=== PATIENT | male | born 1965 | race Two or more races ===

== ENCOUNTER 2017-09-30 17:28 | Inpatient (IN) | payer SELFPAY ==
[2017-09-30] MEDS ORDERED: NORMAL SALINE 1000 ML 1,000 ML IV ONE (18:04)
[2017-09-30] MEDS ORDERED: AZITHROMYCIN INJ 500 MG VIAL IV ONE (18:04)
[2017-09-30] MEDS ORDERED: PIPERACILLIN/TAZOBACTAM 4.5 GM VIAL IV ONE (18:04)
[2017-09-30] MEDS ORDERED: ACETAMINOPHEN 325 MG TABLET PO ONE (18:04)
[2017-09-30] MEDS ORDERED: LEVOFLOXACIN 750 MG/D5W RTU 750 MG/150 ML RTUPB IV ONE (18:06)
--- NOTE | 2017-09-30 18:07 | ER Document Report ---
ED Medical Screen (RME) - General Chief Complaint: Chest Pain Stated Complaint: CHEST PAIN Time Seen by Provider: 09/30/17 18:04 Notes: Was diagnosed with pneumonia today her primary care doctor's office and referred here for persistent tachypnea and left upper back pain. Patient feels short of breath and has had a significant cough and fever. - Related Data Allergies/Adverse Reactions: Penicillins Allergy (Verified 09/30/17 17:30) Past Medical History - Social History Chew tobacco use (# tins/day): No Frequency of alcohol use: None Drug Abuse: None Renal/ Medical History: Denies: Hx Peritoneal Dialysis Physical Exam - Vital signs Vitals: Temp Pulse Resp BP Pulse Ox 99.0 F 110 H 40 H 123/64 90 L 09/30/17 17:56 09/30/17 17:56 09/30/17 17:56 09/30/17 17:56 09/30/17 17:56 Course - Vital Signs Vital signs: Temp Pulse Resp BP Pulse Ox 99.0 F 110 H 40 H 123/64 90 L 09/30/17 17:56 09/30/17 17:56 09/30/17 17:56 09/30/17 17:56 09/30/17 17:56
--- NOTE | 2017-09-30 18:25 | EKG REPORT ---
SEVERITY:- BORDERLINE ECG - SINUS TACHYCARDIA BORDERLINE PROLONGED QT INTERVAL : Confirmed by: Gustavo Bowers MD 30-Sep-2017 18:24:59
[2017-09-30 18:34] LABS: ABSOLUTE LYMPHOCYTES (AUTO) 0.6 10^3/uL (0.5-4.7); ABSOLUTE MONOCYTES (AUTO) 0.7 10^3/uL (0.1-1.4); ABSOLUTE NEUT (AUTO) 7.3 10^3/uL (1.7-8.2); BASOPHILS % (AUTO) 0.3 % (0-2); HEMATOCRIT 48.3 % (37.9-51.0); HEMOGLOBIN 17.1 g/dL (13.5-17.0); LYMPHOCYTES % (AUTO) 6.5 % (13-45); MEAN CORPUSCULAR HEMOGLOBIN 31.2 pg (27.0-33.4); MEAN CORPUSCULAR HGB CONC 35.5 g/dL (32.0-36.0); MEAN CORPUSCULAR VOLUME 88 fl (80-97); PLATELET COUNT 113 10^3/uL (150-450); RED BLOOD COUNT 5.49 10^6/uL (4.35-5.55); SEGMENTED NEUTROPHILS % (AUTO) 85.2 % (42-78); TOTAL CELLS COUNTED % (AUTO) 100 %; WHITE BLOOD COUNT 8.6 10^3/uL (4.0-10.5)
[2017-09-30 18:43] LABS: VENOUS BLOOD BASE EXCESS -0.6 mmol/L; VENOUS BLOOD HCO3 22.7 mmol/L (20-32); VENOUS BLOOD PCO2 34.2 mmHg (35-63); VENOUS BLOOD PH 7.44 (7.30-7.42)
--- NOTE | 2017-09-30 18:47 | RADIOLOGY REPORT (SQ) ---
EXAM DESCRIPTION: CHEST PA/LAT COMPLETED DATE/TIME: 09/30/2017 6:28 pm REASON FOR STUDY: fever/cough COMPARISON: None. EXAM PARAMETERS: NUMBER OF VIEWS: two views TECHNIQUE: Digital Frontal and Lateral radiographic views of the chest acquired. RADIATION DOSE: NA LIMITATIONS: none FINDINGS: LUNGS AND PLEURA: Patchy abnormal air space density bilaterally, left greater than right c onsistent with pneumonia. 7 cm and rounded area of increased density in the left upper lobe which co uld represent a round area of pneumonia although mass cannot be excluded. Chest CT should be conside red. No effusion. MEDIASTINUM AND HILAR STRUCTURES: No masses or contour abnormalities. HEART AND VASCULAR STRUCTURES: Heart normal size. No evidence for failure. BONES: No acute findings. HARDWARE: None in the chest. OTHER: No other significant finding. IMPRESSION: 1. Patchy abnormal air space density bilaterally, left greater than right consistent wi th pneumonia. 2. 7 cm rounded area of increased density in the left upper lobe which could represent round area o f pneumonia or mass. Chest CT should be considered for further evaluation. TECHNICAL DOCUMENTATION: JOB ID: [id number] [employer]- All Rights Reserved
[2017-09-30] MEDS ORDERED: LIDOCAINE 5% (700 MG) TRANSDERMAL ADH..PATCH TP ONE ×2 (19:01→22:45)
[2017-09-30] MEDS ORDERED: KETOROLAC TROMETHAMINE INJ/PF 30 MG/1 ML SDV IV ONE (19:01)
[2017-09-30 19:02] LABS: ALANINE AMINOTRANSFERASE 144 U/L (21-72); ALBUMIN 4.7 g/dL (3.5-5.0); ALKALINE PHOSPHATASE 62 U/L (38-126); ANION GAP 15 (5-19); ASPARTATE AMINO TRANSFERASE 153 U/L (17-59); BILIRUBIN,DIRECT 0.6 mg/dL (0.0-0.4); BILIRUBIN,TOTAL 1.1 mg/dL (0.2-1.3); BLOOD UREA NITROGEN 13 mg/dL (7-20); CALCIUM 9.1 mg/dL (8.4-10.2); CARBON DIOXIDE 22 mmol/L (22-30); CHLORIDE 94 mmol/L (98-107); GLUCOSE 143 mg/dL (75-110); POTASSIUM 4.3 mmol/L (3.6-5.0); TOTAL PROTEIN 8.4 g/dL (6.3-8.2)
--- NOTE | 2017-09-30 19:03 | ER Document Report ---
ED Respiratory Problem - General Chief Complaint: Chest Pain Stated Complaint: CHEST PAIN Time Seen by Provider: 09/30/17 18:04 Notes: The patient is a 52-year-old male, past medical history current smoker, has not seen a doctor in decades, presents with increasing shortness of breath over the past 5 days and productive cough. He says he is having chest pain that is worse when he takes deep breath. He saw a doctor in [place] and was sent to the ER for further evaluation and treatment. Patient is having back spasms that is worse when he takes deep breaths. Patient denies leg swelling, hemoptysis, fevers, nausea, vomiting, abdominal pain, numbness or tingling. - Related Data Allergies/Adverse Reactions: Penicillins Allergy (Verified 09/30/17 17:30) Past Medical History - General Information source: Patient - Social History Smoking Status: Current Every Day Smoker Chew tobacco use (# tins/day): No Frequency of alcohol use: None Drug Abuse: None Family History: Reviewed & Not Pertinent Patient has suicidal ideation: No Patient has homicidal ideation: No Renal/ Medical History: Denies: Hx Peritoneal Dialysis Review of Systems - Review of Systems Notes: REVIEW OF SYSTEMS: CONSTITUTIONAL: -fevers, -chills EENT: -eye pain, -difficulty swallowing, -nasal congestion CARDIOVASCULAR: +chest pain, -syncope. RESPIRATORY: +cough, +SOB GASTROINTESTINAL: -abdominal pain, -nausea, -vomiting, -diarrhea GENITOURINARY: -dysuria, -hematuria MUSCULOSKELETAL: -back pain, -neck pain SKIN: -rash or skin lesions. HEMATOLOGIC: -easy bruising or bleeding. LYMPHATIC: -swollen, enlarged glands. NEUROLOGICAL: -altered mental status or loss of consciousness, -headache, - neurologic symptoms PSYCHIATRIC: -anxiety, -depression. ALL OTHER SYSTEMS REVIEWED AND NEGATIVE. Physical Exam - Vital signs Vitals: Temp Pulse Resp BP Pulse Ox 99.0 F 110 H 40 H 123/64 90 L 09/30/17 17:56 09/30/17 17:56 09/30/17 17:56 09/30/17 17:56 09/30/17 17:56 - Notes Notes: PHYSICAL EXAMINATION: GENERAL: Moderate respiratory distress. HEAD: Atraumatic, normocephalic. EYES: Pupils equal round and reactive to light, extraocular movements intact, sclera anicteric, conjunctiva are normal. ENT: nares patent, oropharynx clear without exudates. Moist mucous membranes. NECK: Normal range of motion, supple without lymphadenopathy LUNGS: Tachypnea, moderate respiratory distress, diffuse crackles. HEART: Regular rhythm, tachycardia. ABDOMEN: Soft, nontender, normoactive bowel sounds. No guarding, no rebound. No masses appreciated. EXTREMITIES: Normal range of motion, no pitting or edema. No cyanosis. NEUROLOGICAL: Cranial nerves grossly intact. Normal speech. Normal sensory and motor exams. PSYCH: Normal mood, normal affect. SKIN: Warm, Dry, normal turgor, no rashes or lesions noted. Course - Re-evaluation Re-evalutation: Patient with left-sided pneumonia that is causing tachypnea, tachycardia and slight hypoxia down to 89%. Patient is doing much better on BiPAP and his respiratory status has improved. Blood pressure is remaining normal. CTA obtained due to abnormal chest x-ray and due to the tachycardia and tachypnea, but no pulmonary embolism was seen. Patient does not have a primary care physician. He requires inpatient admission for IV antibiotics and further monitoring of his respiratory status. 09/30/17 22:[address] Bennett and will admit patient to [facility] as Inpatient. - Vital Signs Vital signs: Temp Pulse Resp BP Pulse Ox 99.0 F 110 H 28 H 117/76 94 09/30/17 17:56 09/30/17 17:56 09/30/17 22:00 09/30/17 21:01 09/30/17 22:00 - Laboratory Result Diagrams: 09/30/17 18:15 09/30/17 18:15 Laboratory results interpreted by me: 09/30/17 09/30/17 09/30/17 18:15 18:15 18:25 Hgb 17.1 H Plt Count 113 L Seg Neutrophils % 85.2 H Lymphocytes % 6.5 L VBG pH 7.44 H VBG pCO2 34.2 L Sodium 131.0 L Chloride 94 L Creatinine 1.29 H Est GFR (Non-Af Amer) 58 L Glucose 143 H Direct Bilirubin 0.6 H AST 153 H ALT 144 H Total Protein 8.4 H - Diagnostic Test Radiology reviewed: Image reviewed, Reports reviewed Radiology results interpreted by me: CXR: 1. Patchy abnormal air space density bilaterally, left greater than right consistent with pneumonia. 2. 7 cm rounded area of increased density in the left upper lobe which could represent round area of pneumonia or mass. Chest CT should be considered for further evaluation. CTA Chest: Diffuse patchy and dense consolidation throughout the left upper and lower lobes. No emboli visualized in the main pulmonary arteries or the segmental branches. - EKG Interpretation by Sd EKG shows normal: Sinus rhythm, [place], Intervals, QRS Complexes, ST-T Waves Rate: Tachycardia When compared to previous EKG there are: No significant change Critical Care Note - Critical Care Note Total time excluding time spent on procedures (mins): 45 Discharge - Discharge Clinical Impression: Pneumonia Qualifiers: Pneumonia type: due to unspecified organism Laterality: left Lung location: unspecified part of lung Qualified Code(s): J18.9 - Pneumonia, unspecified organism Respiratory failure with hypoxia Qualifiers: Chronicity: acute Qualified Code(s): J96.01 - Acute respiratory failure with hypoxia Condition: Stable Disposition: ADMITTED INPATIENT Admitting Provider: Hospitalist - [facility] Unit Admitted: [facility]
[2017-09-30] MEDS ORDERED: CEFTRIAXONE 1 GM/D5W RTU 1 GM/50 ML RTUPB IV ONE (20:52)
[2017-09-30 21:02] LABS: A TYPE INFLUENZA AG NEGATIVE (NEGATIVE); B INFLUENZA AG NEGATIVE (NEGATIVE)
--- NOTE | 2017-09-30 21:08 | RADIOLOGY REPORT (SQ) ---
EXAM DESCRIPTION: CTA CHEST COMPLETED DATE/TIME: 09/30/2017 8:50 pm REASON FOR STUDY: abnormal CXR, chest pain, tachypnea, possible mass COMPARISON: None. TECHNIQUE: CT scan of the chest performed using helical scanning technique with dynamic intravenous contrast injection. Images reviewed with lung, soft tissue and bone windows. Reconstructed coronal and sagittal MPR images reviewed. Additional 3 dimensional post-processing performed to develop Maximal Intensity Projection images ([place] P). All images stored on PACS. All CT scanners at this facility use dose modulation, iterative reconstruction, and/or weight based d osing when appropriate to reduce radiation dose to as low as reasonably achievable (ALARA). [facility]: Dose Right [facility]: CareDose [facility]: Dose Right [facility]: Teradose 4D [facility]: Content Circles CONTRAST TYPE AND DOSE: contrast/concentration: Isovue 370.00 mg/ml; Total Contrast Delivered: 78.0 ml; Total Saline Delivered: 87.0 ml Contrast bolus optimized for the pulmonary arteries. Not diagnostic for the aorta. RENAL FUNCTION: GFR > 60. RADIATION DOSE: CT Rad equipment meets quality standard of care and radiation dose reduction techniq ues were employed. CTDIvol: 24.0 - 33.1 mGy. DLP: 888 mGy-cm. . LIMITATIONS: Mild breathing motion artifact. FINDINGS: LUNGS AND PLEURA: Diffuse patchy and dense consolidation throughout the left upper and low er lobes. No effusion or pneumothorax. Bronchial wall thickening and interstitial markings are pres ent in both lungs. AORTA AND GREAT VESSELS: No aneurysm. Contrast bolus not optimized for the aorta. HEART: No pericardial effusion. Moderate coronary artery calcifications. PULMONARY ARTERIES: No emboli visualized in the main pulmonary arteries or the segmental branches. HILAR AND MEDIASTINAL STRUCTURES: Scattered reactive appearing nodes. HARDWARE: None in the chest. UPPER ABDOMEN: Fatty liver. Calcified gallstones. Limited exam. THYROID AND OTHER SOFT TISSUES: No masses. No adenopathy. BONES: No acute finding. 3D MIPS: Confirm above findings. OTHER: No other significant finding. IMPRESSION: Diffuse patchy and dense consolidation throughout the left upper and lower lobes. No emboli visualized in the main pulmonary arteries or the segmental branches. COMMENT: Quality ID # [id number]: Final reports with documentation of one or more dose reduction techniques (e.g., Automated exposure control, adjustment of the mA and/or kV according to patient size, use of iterative reconstruction technique) TECHNICAL DOCUMENTATION: JOB ID: [id number] [place]-72 2010 [employer]- All Rights Reserved
[2017-09-30] MEDS ORDERED: CEFTRIAXONE INJ 1000 MG VIAL ONE (21:11)
[2017-09-30] MEDS ORDERED: ONDANSETRON 4 MG TAB.RAPDIS PO PRN (22:58)
[2017-09-30] MEDS ORDERED: IPRATROPIUM/ALBUTEROL 0.5-2.5 MG/3 ML AMPUL NEB PRN (22:58)
[2017-09-30] MEDS ORDERED: PROMETHAZINE HCL 25 MG TABLET PO PRN (22:58)
[2017-09-30] MEDS ORDERED: DIAZEPAM INJ 10 MG/2 ML DISP.SYRIN IV ONE (23:36)
[2017-09-30] MEDS ORDERED: MORPHINE SULFATE 10 MG/ML INJ IV ONE (23:58)
[2017-10-01] MEDS ORDERED: HYDROMORPHONE HCL INJ/PF 2 MG/ML AMPULE IV ONE ×2 (00:12→04:15)
--- NOTE | 2017-10-01 03:07 | PDOC H&P ---
History of Present Illness Admission Date/PCP: 09/30/17 22:34 Patient complains of: Worsening shortness of breath and the left-sided back pain for about a week. History of Present Illness: JOSÉ LUIS VALDEZ is a 52 year old male smoker with no known medical history was admitted with above-mentioned complaints. The patient is currently on BiPAP and he is very uncomfortable complaining of left-sided back spasm despite Lidoderm patch and 5 mg of IV Valium given in the ED. It was very difficult to obtain an accurate history from him so some of the information was obtained from the ED notes. The patient complained of pleuritic chest pain exacerbated by cough. He also complained of worsening shortness of breath, undocumented fever, chills and productive cough but he is unable to bring up any sputum. He denied any sick contact or recent travels. He also denied any nausea vomiting or abdominal pain or any urinary symptoms. He is otherwise able to ambulate independently. In the ED, his temperature was 99.0, heart rate 110, respiratory rate 40, blood pressure 123/64 with oxygen saturation of 90% on room air. His WBC was 8.6 and his hemoglobin was 17.1. His troponin was negative. A chest x-ray and CAT scan angiogram of the chest were done with the latter showing diffuse patchy and dense consolidation throughout the left upper and lower lobes, no PE. He received 1 g of Rocephin x1, 500 milligrams IV Zithromax x1 in addition to 750 mg IV Levaquin x1. He also had 5 mg IV Valium x1, 5% Lidoderm patch and 15 mg IV Toradol 1 and 0.5 mg Dilaudid 1. Past Medical History Cardiac Medical History: Reports: Other - unknown Past Surgical History Past Surgical History: Reports: None Social History Smoking Status: Current Every Day Smoker Cigarettes Packs Per Day: 1 - 30 years he quit 5 days ago. Frequency of Alcohol Use: None Family History Family History: Reviewed & Not Pertinent Parental Family History Reviewed: Yes - Father: Diabetes. Children Family History Reviewed: No Sibling(s) Family History Reviewed.: Yes Medication/Allergy Allergies/Adverse Reactions: Penicillins Allergy (Verified 09/30/17 17:30) Review of Systems Constitutional: PRESENT: as per HPI Eyes: PRESENT: as per HPI Ears: PRESENT: as per HPI Nose, Mouth, and Throat: PRESENT: as per HPI Breasts: PRESENT: as per HPI Cardiovascular: PRESENT: as per HPI Respiratory: PRESENT: as per HPI Gastrointestinal: PRESENT: as per HPI Genitourinary: PRESENT: as per HPI Musculoskeletal: PRESENT: as per HPI Integumentary: PRESENT: as per HPI Neurological: PRESENT: as per HPI Psychiatric: PRESENT: as per HPI Endocrine: PRESENT: as per HPI Hematologic/Lymphatic: PRESENT: as per HPI Physical Exam Vital Signs: Temp Pulse Resp BP Pulse Ox 99.0 F 110 H 28 H 117/76 94 09/30/17 17:56 09/30/17 17:56 09/30/17 22:00 09/30/17 21:01 09/30/17 22:00 General appearance: PRESENT: disheveled, mild distress - to moderate Head exam: PRESENT: atraumatic, normocephalic Eye exam: PRESENT: conjunctiva pink, PERRLA. ABSENT: scleral icterus Mouth exam: PRESENT: other - on BIPAP mask. Neck exam: PRESENT: carotid bruit, lymphadenopathy. ABSENT: JVD Respiratory exam: PRESENT: decreased breath sounds, rales, rhonchi. ABSENT: wheezes Cardiovascular exam: PRESENT: tachycardia - S1 S2 normal. ABSENT: rubs Pulses: PRESENT: normal dorsalis pedis pul GI/Abdominal exam: PRESENT: normal bowel sounds, soft. ABSENT: distended, guarding, rebound, tenderness Rectal exam: PRESENT: deferred Extremities exam: PRESENT: full ROM. ABSENT: pedal edema Neurological exam: PRESENT: alert, awake, oriented to person, oriented to place , oriented to situation Psychiatric exam: PRESENT: appropriate affect, normal mood. ABSENT: homicidal ideation, suicidal ideation Skin exam: PRESENT: dry, intact, warm. ABSENT: cyanosis, rash Results Laboratory Results: 09/30/17 18:15 WBC 8.6 RBC 5.49 Hgb 17.1 H Hct 48.3 MCV 88 MCH 31.2 RDW 13.0 Plt Count 113 L VBG: PH 7.44, PCO2 34.2, HCO3 22.7. BMP: Sodium 131, potassium 4.3, chloride 94, bicarb 22, BUN 13, creatinine 1.29 , glucose 143, lactic acid 1.7 AST/ALT: 1 553/1 4 4. Alk phos 62. Total bili 1.1. Troponin: Negative 1. EKG Comments: 12-lead EKG, sinus rhythm, ventricular rate 105, axis +25, QTC prolongation, no acute changes. No previous EKG to compare. Impressions: Chest X-Ray 09/30/17 18:05 IMPRESSION: 1. Patchy abnormal air space density bilaterally, left greater than right consistent with pneumonia. 2. 7 cm rounded area of increased density in the left upper lobe which could represent round area of pneumonia or mass. Chest CT should be considered for further evaluation. Chest/Abdomen CTA 09/30/17 19:03 IMPRESSION: Diffuse patchy and dense consolidation throughout the left upper and lower lobes. No emboli visualized in the main pulmonary arteries or the segmental branches. Assessment & Plan - Diagnosis (1) Acute respiratory failure with hypoxemia Is this a current diagnosis for this admission?: Yes Plan: possibly on chronic given tachypnea and oxygen desaturation requiring BiPAP due to pneumonia, question superimposed COPD exacerbation. His CXR and CAT scan angiogram were reviewed. Will start scheduled DuoNeb treatments, Solu-Medrol and continue antibiotics as detailed below. (2) Community acquired bacterial pneumonia Is this a current diagnosis for this admission?: Yes Plan: Unknown organism. Chest x-ray and CAT scan angiogram of the chest were reviewed. We will continue Rocephin and doxycycline and follow-up blood cultures. (3) Sepsis Qualifiers: Sepsis type: sepsis due to unspecified organism Qualified Code(s): A41.9 - Sepsis, unspecified organism Is this a current diagnosis for this admission?: Yes Plan: Given tachypnea and tachycardia in the setting of pneumonia. Lactic acid was 1.7. We will continue management as mentioned previously. (4) Elevated transaminase level Is this a current diagnosis for this admission?: Yes Plan: Unknown etiology at this time. CTA chest showed fatty liver and calcified gallbladder (limited study). We will check acute hepatitis profile and abdominal ultrasound. The patient denied alcohol use. Will repeat CMP in a.m. (5) Smoker Is this a current diagnosis for this admission?: Yes Plan: The patient used to smoke 1 pack a day for 30 years. He said that he quit 5 days ago. (6) Back pain Qualifiers: Back pain location: thoracic back pain Chronicity: acute Back pain laterality: left Qualified Code(s): M54.6 - Pain in thoracic spine Is this a current diagnosis for this admission?: Yes Plan: and spasm, most likely secondary to pneumonia. We will give IV Dilaudid (IV morphine is not available per pharmacy) as needed at this time and switch him to oral pain medications when off BiPAP. - Time Time Spent: Greater than 70 Minutes Anticipated discharge: Home - Inpatient Certification Based on my medical assessment, after consideration of the patient's comorbidities, presenting symptoms, or acuity I expect that the services needed warrant INPATIENT care.: Yes I certify that my determination is in accordance with my understanding of Medicare's requirements for reasonable and necessary INPATIENT services [42 CFR 412.3e].: Yes
[2017-10-01] MEDS ORDERED: METHYLPREDNISOLONE INJ 40 MG/1 ML SDV IV ONE (03:30)
[2017-10-01] MEDS: IPRATROPIUM/ALBUTEROL 0.5-2.5 MG/3 ML AMPUL NEB SCH ×6 (04:09→23:04)
[2017-10-01 04:45] LABS: ARTERIAL BLOOD BASE EXCESS -10.6 mmol/L; ARTERIAL BLOOD H2CO3 1.33 mmol/L (1.05-1.35); ARTERIAL BLOOD HCO3 17.1 mmol/L (20-26); ARTERIAL BLOOD O2 SATURATION 87.1 % (94-98); ARTERIAL BLOOD PCO2 44.1 mmHg (35-45); ARTERIAL BLOOD PH 7.21 (7.35-7.45); ARTERIAL BLOOD PO2 62.8 mmHg (80-100); ARTERIAL BLOOD TOTAL CO2 18.4 mmol/L (23-27)
[2017-10-01 04:46] LABS: ARTERIAL BLOOD FIO2 40%
[2017-10-01 05:54] LABS: ANION GAP 18 (5-19); BLOOD UREA NITROGEN 22 mg/dL (7-20); CALCIUM 7.8 mg/dL (8.4-10.2); CARBON DIOXIDE 16 mmol/L (22-30); CHLORIDE 98 mmol/L (98-107); GLUCOSE 130 mg/dL (75-110); HEMATOCRIT 47.3 % (37.9-51.0); HEMOGLOBIN 16.6 g/dL (13.5-17.0); MEAN CORPUSCULAR HEMOGLOBIN 31.4 pg (27.0-33.4); MEAN CORPUSCULAR HGB CONC 35.1 g/dL (32.0-36.0); MEAN CORPUSCULAR VOLUME 90 fl (80-97); POTASSIUM 4.4 mmol/L (3.6-5.0); RED BLOOD COUNT 5.29 10^6/uL (4.35-5.55); RED CELL DISTRIBUTION WIDTH 13.1 % (11.5-14.0); SODIUM 132.2 mmol/L (137-145)
[2017-10-01] MEDS ORDERED: HEPARIN SOD (PORCINE) 5,000 UNIT/ML 1 ML SYRINGE SUBCUT SCH (06:00)
[2017-10-01 06:20] LABS: PLATELET COUNT 86 10^3/uL (150-450)
[2017-10-01 07:08] LABS: ARTERIAL BLOOD BASE EXCESS -10.5 mmol/L; ARTERIAL BLOOD H2CO3 1.15 mmol/L (1.05-1.35); ARTERIAL BLOOD HCO3 16.1 mmol/L (20-26); ARTERIAL BLOOD O2 SATURATION 95.1 % (94-98); ARTERIAL BLOOD PCO2 38.1 mmHg (35-45); ARTERIAL BLOOD PH 7.24 (7.35-7.45); ARTERIAL BLOOD PO2 86.5 mmHg (80-100); ARTERIAL BLOOD TOTAL CO2 17.2 mmol/L (23-27)
[2017-10-01 07:12] LABS: ARTERIAL BLOOD FIO2 60%
[2017-10-01] MEDS ORDERED: NORMAL SALINE 1000 ML 1,000 ML IV PRN (08:06)
[2017-10-01] MEDS ORDERED: HYDROMORPHONE HCL INJ/PF 2 MG/ML AMPULE IV PRN (08:14)
[2017-10-01] MEDS ORDERED: SUCCINYLCHOLINE CHLORIDE INJ 200 MG/10 ML VIAL ONE (08:18)
[2017-10-01] MEDS ORDERED: NORMAL SALINE 1000 ML 2,000 ML IV ONE (09:00)
[2017-10-01 09:14] LABS: APPEARANCE,URINE SLIGHTLY-CLOUDY; BILIRUBIN,URINE NEGATIVE (NEGATIVE); COLOR,URINE YELLOW; GLUCOSE, URINE NEGATIVE (NEGATIVE); KETONES,URINE TRACE mg/dL (NEGATIVE); LEUKOCYTE ESTERASE,URINE NEGATIVE (NEGATIVE); NITRITE,URINE NEGATIVE (NEGATIVE); PROTEIN,URINE 30 mg/dL (NEGATIVE); URINE SPECIFIC GRAVITY 1.041; UROBILINOGEN,URINE NEGATIVE mg/dL (<2.0)
[2017-10-01 09:48] LABS: ABSOLUTE LYMPHOCYTES (AUTO) 0.4 10^3/uL (0.5-4.7); ABSOLUTE MONOCYTES (AUTO) 0.3 10^3/uL (0.1-1.4); ABSOLUTE NEUT (AUTO) 1.6 10^3/uL (1.7-8.2); BASOPHILS % (AUTO) 0.2 % (0-2); EOSINOPHILS % (AUTO) 0.1 % (0-6); HEMATOCRIT 51.4 % (37.9-51.0); HEMOGLOBIN 17.8 g/dL (13.5-17.0); LYMPHOCYTES % (AUTO) 18.5 % (13-45); MEAN CORPUSCULAR HGB CONC 34.7 g/dL (32.0-36.0); MEAN CORPUSCULAR VOLUME 89 fl (80-97); MONOCYTES % (AUTO) 14.3 % (3-13); RED BLOOD COUNT 5.76 10^6/uL (4.35-5.55); RED CELL DISTRIBUTION WIDTH 13.1 % (11.5-14.0); SEGMENTED NEUTROPHILS % (AUTO) 66.9 % (42-78); TOTAL CELLS COUNTED % (AUTO) 100 %; WHITE BLOOD COUNT 2.3 10^3/uL (4.0-10.5)
[2017-10-01] MEDS ORDERED: LEVOFLOXACIN 750 MG/D5W RTU 750 MG/150 ML RTUPB IV SCH (10:00)
[2017-10-01] MEDS ORDERED: OSELTAMIVIR PHOSPHATE 75 MG CAPSULE PO SCH (10:00)
[2017-10-01] MEDS ORDERED: LINEZOLID 300 ML IV SCH ×2 (10:00→22:00)
[2017-10-01] MEDS ORDERED: METHYLPREDNISOLONE INJ 40 MG/1 ML SDV IV SCH (10:00)
[2017-10-01] MEDS ORDERED: FAMOTIDINE 20 MG TABLET PO SCH (10:00)
[2017-10-01] MEDS ORDERED: DOXYCYCLINE HYCLATE 100 MG TABLET PO SCH (10:00)
[2017-10-01 10:12] LABS: PLATELET COUNT 67 10^3/uL (150-450)
[2017-10-01] MEDS ORDERED: ACETAMINOPHEN 325 MG TABLET PO PRN (10:21)
[2017-10-01] MEDS ORDERED: PHARMACY COMMUNICATION ORDER MC NR (11:30)
[2017-10-01] MEDS ORDERED: PROPOFOL 100 ML IV ONE (11:33)
[2017-10-01] MEDS ORDERED: PHENYLEPHRINE HCL INJ/PF 10 MG/1 ML SDV ONE (11:45)
[2017-10-01] MEDS ORDERED: NOREPINEPHRINE BITARTRATE INJ/PF 4 MG/4 ML SDV IV ONE (11:55)
[2017-10-01] MEDS ORDERED: ONDANSETRON 4 MG TAB.RAPDIS NG PRN (12:00)
[2017-10-01] MEDS ORDERED: PROMETHAZINE HCL 25 MG TABLET NG PRN (12:00)
--- NOTE | 2017-10-01 12:13 | Operative Report ---
Operative Report DATE OF SURGERY: 10/01/17 PREOPERATIVE DIAGNOSIS: need IV access for meds fluids POSTOPERATIVE DIAGNOSIS: same OPERATION: Left subcalvian vein CVL SURGEON: TOBIAS DUNAWAY ANESTHESIA: GA TISSUE REMOVED OR ALTERED: none COMPLICATIONS: none ESTIMATED BLOOD LOSS: < 5 mL INTRAOPERATIVE FINDINGS: as above PROCEDURE: see dictation
--- NOTE | 2017-10-01 12:23 | OPERATIVE REPORT E ---
Operative Report NAME: JOSÉ LUIS VALDEZ : 1965 AGE: 52Y DATE OF SURGERY: 10/01/2017 ROOM: 609 PREOPERATIVE DIAGNOSIS: NEED FOR IV ACCESS FOR ADMINISTRATION OF MEDICATION DRUGS. POSTOPERATIVE DIAGNOSIS: NEED FOR IV ACCESS FOR ADMINISTRATION OF MEDICATION DRUGS. OPERATION: Placement of a left subclavian central venous line. SURGEON: TOBIAS DUNAWAY M.D. AGRICULTURAL PURCHASING AGENT: None. ANESTHESIA: None, as the patient was already undergoing IV sedation by anesthesiologist. ESTIMATED BLOOD LOSS: Minimal. COMPLICATIONS: None. INDICATION AND FINDINGS: This is a 52-year-old male who has been getting currently emergently intubated in dire need of IV access for the administration of medication and fluids. PROCEDURE: It was done in the ICU. The patient was placed in Trendelenburg position. The right side of the chest and neck was prepped and draped in usual fashion. A 16-gauge needle was used to easily cannulate the left subclavian vein, with good blood return. The guidewire was inserted over the needle into the subclavian vein and superior vena cava. The needle was removed. Insertion of port with the guidewire was done with a #11 blade and a tissue dilator, which was removed. A triple-lumen catheter was inserted over the guidewire into the left subclavian vein and superior vena cava. The guidewire was then removed. The port was aspirated and flushed with normal saline without difficulty. The catheter was sutured to the skin with silk sutures. Sterile dressings applied. The patient tolerated the procedure well. A chest x-ray was obtained to confirm position of the line. DICTATING PHYSICIAN: TOBIAS DUNAWAY M.D. [id number] PHY#: [id number] ID: [id number] JOB#: [id number] ACCT: [id number] cc:TOBIAS DUNAWAY M.D. > MTDD
--- NOTE | 2017-10-01 12:27 | PDOC CONSULTATION ---
Consultation Consult Date: 10/01/17 Consult reason:: need CVL placement History of Present Illness Admission Date/PCP: 09/30/17 22:34 History of Present Illness: 52 yr. old male in dire need of iv access via CVL Past Medical History Cardiac Medical History: Reports: Other - unknown Past Surgical History Past Surgical History: Reports: None Social History Smoking Status: Current Every Day Smoker Cigarettes Packs Per Day: 1 - 30 years he quit 5 days ago. Frequency of Alcohol Use: None Family History Family History: Reviewed & Not Pertinent Parental Family History Reviewed: Yes Children Family History Reviewed: Yes Sibling(s) Family History Reviewed.: Yes Medication/Allergy Home Medications: Acetaminophen [Tylenol Extra Strength] 1,000 mg PO Q6 10/01/17 Guaifenesin/Pseudoephedrne HCl [Mucinex D ER Tablet] 1 each PO DAILY 10/01/17 Allergies/Adverse Reactions: Penicillins Allergy (Verified 09/30/17 17:30) Physical Exam Vital Signs: Temp Pulse Resp BP Pulse Ox 98.0 F 129 H 17 102/68 91 L 10/01/17 06:15 10/01/17 04:09 10/01/17 10:00 10/01/17 10:02 10/01/17 09:47 Intake & Output 09/30/17 10/01/17 10/02/17 06:59 06:59 06:59 Output Total 500 Balance -500 General appearance: PRESENT: severe distress, other - intubated sedated Respiratory exam: PRESENT: accessory muscle use, clear to auscultation lianne Results Laboratory Results: 10/01/17 09:18 10/01/17 05:00 10/01/17 10/01/17 10/01/17 04:35 05:00 05:00 WBC 2.0 L D RBC 5.29 Hgb 16.6 Hct 47.3 MCV 90 MCH 31.4 MCHC 35.1 RDW 13.1 Plt Count 86 L Seg Neutrophils % Lymphocytes % Monocytes % Eosinophils % Basophils % Absolute Neutrophils Absolute Lymphocytes Absolute Monocytes Absolute Eosinophils Absolute Basophils Carbonic Acid 1.33 HCO3/H2CO3 Ratio 12:1 ABG pH 7.21 L ABG pCO2 44.1 ABG pO2 62.8 L ABG HCO3 17.1 L ABG O2 Saturation 87.1 L ABG Base Excess -10.6 FiO2 40% Sodium 132.2 L Potassium 4.4 Chloride 98 Carbon Dioxide 16 L Anion Gap 18 BUN 22 H Creatinine 2.61 H Est GFR ( Amer) 31 L Est GFR (Non-Af Amer) 26 L Glucose 130 H Lactic Acid Calcium 7.8 L Urine Color Urine Appearance Urine pH Ur Specific Advance Urine Protein Urine Glucose (UA) Urine Ketones Urine Blood Urine Nitrite Ur Leukocyte Esterase Urine WBC (Auto) Urine RBC (Auto) 10/01/17 10/01/17 10/01/17 06:57 08:15 08:51 WBC RBC Hgb Hct MCV MCH MCHC RDW Plt Count Seg Neutrophils % Lymphocytes % Monocytes % Eosinophils % Basophils % Absolute Neutrophils Absolute Lymphocytes Absolute Monocytes Absolute Eosinophils Absolute Basophils Carbonic Acid 1.15 HCO3/H2CO3 Ratio 14:1 ABG pH 7.24 L ABG pCO2 38.1 ABG pO2 86.5 ABG HCO3 16.1 L ABG O2 Saturation 95.1 ABG Base Excess -10.5 FiO2 60% Sodium Potassium Chloride Carbon Dioxide Anion Gap BUN Creatinine Est GFR ( Amer) Est GFR (Non-Af Amer) Glucose Lactic Acid 5.2 H Calcium Urine Color YELLOW Urine Appearance SLIGHTLY-CLOUDY Urine pH 5.0 Ur Specific Advance 1.041 Urine Protein 30 H Urine Glucose (UA) NEGATIVE Urine Ketones TRACE H Urine Blood SMALL H Urine Nitrite NEGATIVE Ur Leukocyte Esterase NEGATIVE Urine WBC (Auto) 2 Urine RBC (Auto) 9 10/01/17 09:18 WBC 2.3 L RBC 5.76 H Hgb 17.8 H Hct 51.4 H MCV 89 MCH 31.0 MCHC 34.7 RDW 13.1 Plt Count 67 L Seg Neutrophils % 66.9 Lymphocytes % 18.5 Monocytes % 14.3 H Eosinophils % 0.1 Basophils % 0.2 Absolute Neutrophils 1.6 L Absolute Lymphocytes 0.4 L Absolute Monocytes 0.3 Absolute Eosinophils 0.0 Absolute Basophils 0.0 Carbonic Acid HCO3/H2CO3 Ratio ABG pH ABG pCO2 ABG pO2 ABG HCO3 ABG O2 Saturation ABG Base Excess FiO2 Sodium Potassium Chloride Carbon Dioxide Anion Gap BUN Creatinine Est GFR ( Amer) Est GFR (Non-Af Amer) Glucose Lactic Acid Calcium Urine Color Urine Appearance Urine pH Ur Specific Advance Urine Protein Urine Glucose (UA) Urine Ketones Urine Blood Urine Nitrite Ur Leukocyte Esterase Urine WBC (Auto) Urine RBC (Auto) Impressions: Chest/Abdomen CTA 09/30/17 19:03 IMPRESSION: Diffuse patchy and dense consolidation throughout the left upper and lower lobes. No emboli visualized in the main pulmonary arteries or the segmental branches. Assessment & Plan - Plan Summary Plan Summary: A/ Patient in dire need of IV access, intubated P/ Plan placement of CVL at bedside.
--- NOTE | 2017-10-01 12:38 | RADIOLOGY REPORT (SQ) ---
EXAM DESCRIPTION: CHEST SINGLE VIEW COMPLETED DATE/TIME: 10/01/2017 12:17 pm REASON FOR STUDY: ET Tube Placement/CENTRAL LINE PLACEMENT/RESPIRATORY FAILURE COMPARISON: Two-view chest films 09/30/2017 CT angio chest 09/30/2017 EXAM PARAMETERS: NUMBER OF VIEWS: One view. TECHNIQUE: Single frontal radiographic view of the chest acquired. RADIATION DOSE: NA LIMITATIONS: None. FINDINGS: Interval placement of a endotracheal tube with the tip 5 cm above the glenys. Left-sided subclavian central line tip in the superior vena cava. No pneumothorax. Moderate gaseous distension of stomach. LUNGS AND PLEURA: Progression of consolidation, now with near complete opacification of the left lung , and patchy right mid lung opacification. Findings are worrisome for ARDS versus pneumonia versus e court. No pneumothorax. No gross pleural effusions. MEDIASTINUM AND HILAR STRUCTURES: No masses. Contour normal. HEART AND VASCULAR STRUCTURES: No cardiomegaly BONES: No acute findings. HARDWARE: As above OTHER: No other significant finding. IMPRESSION: Progression of airspace disease bilaterally left greater than right worrisome for ARDS v ersus edema versus pneumonia. Endotracheal tube, left subclavian line in good positioning. TECHNICAL DOCUMENTATION: JOB ID: [id number] [employer]- All Rights Reserved
[2017-10-01] MEDS: DEXTROSE 5%-WATER 250 ML with PHENYLEPHRINE HCL 40 MG IV PRN ×4 (12:58→22:48)
[2017-10-01] MEDS ORDERED: PANTOPRAZOLE SODIUM 40 MG VIAL IV ONE ×2 (13:00→15:45)
[2017-10-01] MEDS ORDERED: TUBERCULIN,PURIF.PROT.DERIV. 5 TU/0.1 ML TEST 1 ML VIAL ID ONE (13:00)
[2017-10-01] MEDS ORDERED: MIDAZOLAM HCL 50 MG/100 ML RTUINJ IV PRN (13:01)
[2017-10-01] MEDS: PROPOFOL 100 ML IV PRN ×2 (13:06→17:28)
[2017-10-01] MEDS: METHYLPREDNISOLONE INJ 40 MG/1 ML SDV IV SCH ×2 (13:11→23:57)
--- NOTE | 2017-10-01 13:12 | Progress Note ---
Provider Note Provider Note: When patient was transferred to ICU was tachypneic. Dr. Rangel was at bedside and consider that patient required to be intubated. He was successfully intubated. Dr. Arrington inserted central line with no further complications. NG tube demonstrated bright red blood and orders for Protonix IV were given. Antibiotic regimen was changed to meropenem and Zyvox. Will continue Tamiflu. Further orders were placed which is BMP since if renal function continued to deteriorate and may consider to transfer patient since we do not have renal backup
[2017-10-01 13:20] LABS: ARTERIAL BLOOD BASE EXCESS -16.8 mmol/L; ARTERIAL BLOOD H2CO3 1.76 mmol/L (1.05-1.35); ARTERIAL BLOOD HCO3 14.7 mmol/L (20-26); ARTERIAL BLOOD O2 SATURATION 84.7 % (94-98); ARTERIAL BLOOD PCO2 58.6 mmHg (35-45); ARTERIAL BLOOD PO2 71.1 mmHg (80-100); ARTERIAL BLOOD TOTAL CO2 16.5 mmol/L (23-27)
[2017-10-01 13:21] LABS: INTERNATIONAL RATION (INR) 1.43; PROTHROMBIN TIME 18.3 SEC (11.4-15.4)
[2017-10-01 13:22] LABS: ARTERIAL BLOOD FIO2 100%; PARTIAL THROMBOPLASTIN TIME 42.8 SEC (23.5-35.8)
[2017-10-01 13:23] LABS: ARTERIAL BLOOD PH 7.02 (7.35-7.45)
[2017-10-01] MEDS ORDERED: MIDAZOLAM HCL 50 MG/100 ML RTUINJ IV ONE (13:23)
[2017-10-01] MEDS ORDERED: EPINEPHRINE INJ 1 MG/10 ML DISP.SYRIN ONE (13:35)
--- NOTE | 2017-10-01 13:41 | PDOC PROGRESS REPORT ---
Subjective Progress Note for:: 10/01/17 Subjective:: Patient complains of left-sided pain shortness of breath. Patient states that everything started 5 days ago with flulike symptoms such as runny or nose stuffy nose and cough. Patient denies any history of diabetes, COPD. He stopped smoking 5 days ago. Patient complains of being thirsty Review of systems All organ systems evaluated and negative except as in subjective All significant laboratories and diagnostics have been reviewed Reason For Visit: COMMUNITY ACQUIRED PNEUMONIA Physical Exam Vital Signs: Temp Pulse Resp BP Pulse Ox 98.0 F 129 H 37 H 101/72 92 10/01/17 06:15 10/01/17 04:09 10/01/17 07:01 10/01/17 07:01 10/01/17 07:01 General appearance: PRESENT: obese Head exam: PRESENT: atraumatic, normocephalic Eye exam: PRESENT: conjunctiva pink, EOMI, PERRLA Ear exam: PRESENT: normal external ear exam Mouth exam: PRESENT: dry mucosa Neck exam: PRESENT: full ROM. ABSENT: JVD, lymphadenopathy, tenderness Respiratory exam: PRESENT: crackles, decreased breath sounds, tachypnea. ABSENT : unlabored Cardiovascular exam: PRESENT: tachycardia. ABSENT: diastolic murmur, systolic murmur Vascular exam: PRESENT: normal capillary refill GI/Abdominal exam: PRESENT: normal bowel sounds, soft. ABSENT: tenderness Extremities exam: PRESENT: full ROM. ABSENT: pedal edema Musculoskeletal exam: ABSENT: deformity Neurological exam: PRESENT: alert, awake, oriented to person, oriented to place , oriented to time, oriented to situation, CN II-XII grossly intact Psychiatric exam: PRESENT: anxious Skin exam: PRESENT: dry, pallor, other - cold Results Laboratory Results: 10/01/17 05:00 10/01/17 05:00 10/01/17 10/01/17 10/01/17 04:35 05:00 05:00 WBC 2.0 L D RBC 5.29 Hgb 16.6 Hct 47.3 MCV 90 MCH 31.4 MCHC 35.1 RDW 13.1 Plt Count 86 L Carbonic Acid 1.33 HCO3/H2CO3 Ratio 12:1 ABG pH 7.21 L ABG pCO2 44.1 ABG pO2 62.8 L ABG HCO3 17.1 L ABG O2 Saturation 87.1 L ABG Base Excess -10.6 FiO2 40% Sodium 132.2 L Potassium 4.4 Chloride 98 Carbon Dioxide 16 L Anion Gap 18 BUN 22 H Creatinine 2.61 H Est GFR ( Amer) 31 L Est GFR (Non-Af Amer) 26 L Glucose 130 H Calcium 7.8 L 10/01/17 06:57 WBC RBC Hgb Hct MCV MCH MCHC RDW Plt Count Carbonic Acid 1.15 HCO3/H2CO3 Ratio 14:1 ABG pH 7.24 L ABG pCO2 38.1 ABG pO2 86.5 ABG HCO3 16.1 L ABG O2 Saturation 95.1 ABG Base Excess -10.5 FiO2 60% Sodium Potassium Chloride Carbon Dioxide Anion Gap BUN Creatinine Est GFR ( Amer) Est GFR (Non-Af Amer) Glucose Calcium Impressions: Chest X-Ray 09/30/17 18:05 IMPRESSION: 1. Patchy abnormal air space density bilaterally, left greater than right consistent with pneumonia. 2. 7 cm rounded area of increased density in the left upper lobe which could represent round area of pneumonia or mass. Chest CT should be considered for further evaluation. Chest/Abdomen CTA 09/30/17 19:03 IMPRESSION: Diffuse patchy and dense consolidation throughout the left upper and lower lobes. No emboli visualized in the main pulmonary arteries or the segmental branches. Assessment & Plan - Diagnosis (1) Acute respiratory failure with hypoxemia Is this a current diagnosis for this admission?: Yes Plan: Patient currently on BiPAP and he was made aware that if continues worsening may need to be intubated (2) Community acquired bacterial pneumonia Is this a current diagnosis for this admission?: Yes Plan: Patient will be placed on broad spectrum antibiotic and will also add tamiflu (3) Elevated transaminase level Is this a current diagnosis for this admission?: Yes Plan: Likely due to fatty liver disease. Sonogram was ordered by admitting physician and will follow up. Hepatitis profile was ordered by admitting physician and is pending. (4) MCKINLEY (acute kidney injury) Is this a current diagnosis for this admission?: Yes Plan: Patient will be given IV fluids and follow-up if any improvement. We at the present time do not have renal backup. If there is an upward trend will consider transferring. Likely abnormal renal functions relate to septic process and ATN (5) Severe sepsis Is this a current diagnosis for this admission?: Yes Plan: Will request stat lactic acid, Pimentel cath and 2 L normal saline bolus followed by continuous normal saline at 250 if obtaining adequate urine output (6) Pancytopenia Is this a current diagnosis for this admission?: Yes Plan: Concern that leukocytes and platelets are low. There could be a possibility that this may represent severe streptococcal pneumonia. Will order LDH, FRANCISCO and haptoglobin. (7) Hyponatremia Is this a current diagnosis for this admission?: Yes Plan: May relate to volume contraction in the setting of sepsis. We will trend. - Time Time Spent with patient: 35 or more minutes Medications reviewed and adjusted accordingly: Yes Anticipated discharge: Other - Too early to tell. May need transfer to a higher level facility Within: within 48 hours - Inpatient Certification Based on my medical assessment, after consideration of the patient's comorbidities, presenting symptoms, or acuity I expect that the services needed warrant INPATIENT care.: Yes Medical Necessity: Need Close Monitoring Due to Risk of Patient Decompensation, Need For IV Fluids, Need For Continuous Telemetry Monitoring, Need for Nebulizer Therapy and Monitoring of Response, Need for IV Antibiotics
[2017-10-01] MEDS ORDERED: NORMAL SALINE 500 ML with ROCURONIUM BROMIDE 500 MG IV PRN ×2 (14:09)
--- NOTE | 2017-10-01 14:25 | RADIOLOGY REPORT (SQ) ---
EXAM DESCRIPTION: KUB/ABDOMEN (SINGLE VIEW) COMPLETED DATE/TIME: 10/01/2017 2:10 pm REASON FOR STUDY: NG Tube Placement COMPARISON: AP chest 10/01/2017 NUMBER OF VIEWS: One view. TECHNIQUE: AP chest for nasogastric tube placement LIMITATIONS: None. FINDINGS: A nasogastric tube is present with the tip in the stomach and side-port in the GE junction region. Endotracheal tube tip 5 cm above the glenys. Left subclavian central line tip in the super ior vena cava. Interval decompression of the stomach. There is dense consolidation throughout the visualized left lung, edema versus pneumonia versus ARDS IMPRESSION: Decompression of the stomach. Nasogastric tube tip in the stomach, side port at the GE junction TECHNICAL DOCUMENTATION: JOB ID: [id number] [employer]- All Rights Reserved
[2017-10-01 14:59] LABS: ANION GAP 11 (5-19); BLOOD UREA NITROGEN 26 mg/dL (7-20); CARBON DIOXIDE 16 mmol/L (22-30); CHLORIDE 105 mmol/L (98-107); GLUCOSE 129 mg/dL (75-110); POTASSIUM 4.6 mmol/L (3.6-5.0); SODIUM 132.1 mmol/L (137-145)
[2017-10-01 15:11] LABS: CALCIUM 6.6 mg/dL (8.4-10.2)
[2017-10-01] MEDS: MEROPENEM 1 GM in NORMAL SALINE 100 ML IV SCH ×2 (15:33→23:51)
[2017-10-01] MEDS: NORMAL SALINE 1000 ML 1,000 ML IV PRN ×2 (15:50→19:41)
[2017-10-01] MEDS: ACETAMINOPHEN 325 MG TABLET NG PRN ×2 (15:52→21:32)
[2017-10-01] MEDS ORDERED: DEXTROSE 5%-WATER 250 ML with NOREPINEPHRINE BITARTRATE 4 MG IV PRN ×2 (16:17)
[2017-10-01] MEDS ORDERED: INFLUENZA ADLT QUAD (36MOS+) 2017-18 VAC 0.5 ML SYR IM PRN (16:31)
[2017-10-01 16:40] LABS: ARTERIAL BLOOD BASE EXCESS -14.9 mmol/L; ARTERIAL BLOOD H2CO3 1.75 mmol/L (1.05-1.35); ARTERIAL BLOOD O2 SATURATION 86.2 % (94-98); ARTERIAL BLOOD PO2 71.1 mmHg (80-100); ARTERIAL BLOOD TOTAL CO2 17.8 mmol/L (23-27)
[2017-10-01 16:43] LABS: ARTERIAL BLOOD FIO2 95%
[2017-10-01 16:44] LABS: ARTERIAL BLOOD PH 7.06 (7.35-7.45)
[2017-10-01] MEDS ORDERED: CALCIUM GLUCONATE 2,222 MG in DEXTROSE 5%-WATER 100 ML IV ONE (17:00)
[2017-10-01] MEDS ORDERED: OSELTAMIVIR PHOSPHATE 75 MG CAPSULE NG SCH (18:00)
[2017-10-01 18:12] LABS: ARTERIAL BLOOD BASE EXCESS -14.6 mmol/L; ARTERIAL BLOOD H2CO3 1.24 mmol/L (1.05-1.35); ARTERIAL BLOOD HCO3 13.8 mmol/L (20-26); ARTERIAL BLOOD O2 SATURATION 85.3 % (94-98); ARTERIAL BLOOD PCO2 41.2 mmHg (35-45); ARTERIAL BLOOD PO2 63.4 mmHg (80-100); ARTERIAL BLOOD TOTAL CO2 15.1 mmol/L (23-27)
[2017-10-01 18:27] LABS: ARTERIAL BLOOD FIO2 95%
[2017-10-01 18:29] LABS: ARTERIAL BLOOD PH 7.14 (7.35-7.45)
[2017-10-01] MEDS ORDERED: SODIUM BICARBONATE IV PRN ×2 (20:55)
[2017-10-01] MEDS ORDERED: NORMAL SALINE IV PRN ×2 (20:55)
[2017-10-01 21:34] LABS: ARTERIAL BLOOD BASE EXCESS -17.7 mmol/L; ARTERIAL BLOOD FIO2 100%; ARTERIAL BLOOD H2CO3 1.34 mmol/L (1.05-1.35); ARTERIAL BLOOD HCO3 12.4 mmol/L (20-26); ARTERIAL BLOOD O2 SATURATION 59.9 % (94-98); ARTERIAL BLOOD PCO2 44.5 mmHg (35-45); ARTERIAL BLOOD PO2 43.1 mmHg (80-100); ARTERIAL BLOOD TOTAL CO2 13.7 mmol/L (23-27)
[2017-10-01 21:35] LABS: ARTERIAL BLOOD PH 7.06 (7.35-7.45)
[2017-10-01] MEDS ORDERED: VASOPRESSIN INJ 20 UNIT/1 ML VIAL ONE (21:36)
[2017-10-01] MEDS ORDERED: SODIUM BICARBONATE 8.4% INJ 50 MEQ/50 ML DISP.SYRIN ONE (21:49)
[2017-10-01] MEDS ORDERED: CEFTRIAXONE 1 GM/D5W RTU 1 GM/50 ML RTUPB IV SCH (22:00)
[2017-10-01] MEDS ORDERED: PANTOPRAZOLE SODIUM 40 MG VIAL IV SCH (22:00)
[2017-10-01] MEDS ORDERED: FUROSEMIDE INJ/PF 40 MG/4 ML SDV IV ONE (22:00)
[2017-10-01] MEDS ORDERED: FAMOTIDINE 20 MG TABLET NG SCH (22:00)
[2017-10-01] MEDS ORDERED: OSELTAMIVIR PHOSPHATE 30 MG CAPSULE NG SCH (22:00)
[2017-10-01 22:03] LABS: INTERNATIONAL RATION (INR) 1.75
[2017-10-01 22:04] LABS: PARTIAL THROMBOPLASTIN TIME 44.9 SEC (23.5-35.8)
[2017-10-01 22:07] LABS: PROTHROMBIN TIME 21.4 SEC (11.4-15.4)
[2017-10-01 22:11] LABS: ABSOLUTE MONOCYTES (AUTO) 0.2 10^3/uL (0.1-1.4); ABSOLUTE NEUT (AUTO) 1.7 10^3/uL (1.7-8.2); BASOPHILS % (AUTO) 0.2 % (0-2); EOSINOPHILS % (AUTO) 0.1 % (0-6); HEMATOCRIT 50.1 % (37.9-51.0); HEMOGLOBIN 17.1 g/dL (13.5-17.0); LYMPHOCYTES % (AUTO) 33.5 % (13-45); MEAN CORPUSCULAR HEMOGLOBIN 31.3 pg (27.0-33.4); MEAN CORPUSCULAR HGB CONC 34.2 g/dL (32.0-36.0); MEAN CORPUSCULAR VOLUME 92 fl (80-97); MONOCYTES % (AUTO) 6.9 % (3-13); RED BLOOD COUNT 5.47 10^6/uL (4.35-5.55); RED CELL DISTRIBUTION WIDTH 13.9 % (11.5-14.0); SEGMENTED NEUTROPHILS % (AUTO) 59.3 % (42-78); TOTAL CELLS COUNTED % (AUTO) 100 %; WHITE BLOOD COUNT 2.9 10^3/uL (4.0-10.5)
--- NOTE | 2017-10-01 22:16 | RADIOLOGY REPORT (SQ) ---
EXAM DESCRIPTION: CHEST SINGLE VIEW COMPLETED DATE/TIME: 10/01/2017 10:00 pm REASON FOR STUDY: resp distress COMPARISON: 10/01/2017 earlier. FINDINGS: AP portable supine single-view chest is timed approximately 2147 hours. Endotracheal and nasogastric tubes remain in place. Tip of the NG tube not seen. Left subclavian li ne in place, proximal SVC. No pneumothorax grossly detected. Extensive parenchymal infiltrates/edema bilaterally. Similar on the left. Progressive on the right. IMPRESSION: 1. Appropriate endotracheal and left subclavian line. Nasogastric tube tip not seen. 2. Progressive infiltrates/edema, now worsening on the right compared to study from earlier. TECHNICAL DOCUMENTATION: JOB ID: [id number]
[2017-10-01 22:21] LABS: PLATELET COUNT 36 10^3/uL (150-450)
[2017-10-01 22:32] LABS: CREATINE KINASE MB 18.5 ng/mL (<4.55); TROPONIN I 0.088 ng/mL
[2017-10-01 22:47] LABS: ARTERIAL BLOOD BASE EXCESS -14.5 mmol/L; ARTERIAL BLOOD FIO2 100%; ARTERIAL BLOOD H2CO3 1.57 mmol/L (1.05-1.35); ARTERIAL BLOOD HCO3 15.6 mmol/L (20-26); ARTERIAL BLOOD O2 SATURATION 47.8 % (94-98); ARTERIAL BLOOD TOTAL CO2 17.2 mmol/L (23-27)
[2017-10-01 22:49] LABS: ARTERIAL BLOOD PO2 34.9 mmHg (80-100)
[2017-10-01 23:12] VITALS: BP 43/32
[2017-10-01] MEDS ORDERED: SODIUM BICARBONATE 8.4% INJ 50 MEQ/50 ML DISP.SYRIN IV ONE (23:45)
[2017-10-01] MEDS ORDERED: DEXTROSE 5%-WATER 250 ML with VASOPRESSIN 100 UNIT IV PRN ×2 (23:49)
[2017-10-02 01:04] LABS: ARTERIAL BLOOD BASE EXCESS -31.4 mmol/L; ARTERIAL BLOOD H2CO3 2.03 mmol/L (1.05-1.35); ARTERIAL BLOOD HCO3 7.4 mmol/L (20-26); ARTERIAL BLOOD O2 SATURATION 28.3 % (94-98); ARTERIAL BLOOD PCO2 67.3 mmHg (35-45); ARTERIAL BLOOD TOTAL CO2 9.4 mmol/L (23-27)
[2017-10-02 01:07] LABS: ARTERIAL BLOOD FIO2 100%; ARTERIAL BLOOD PH 6.66 (7.35-7.45); ARTERIAL BLOOD PO2 38.1 mmHg (80-100)
--- NOTE | 2017-10-02 02:28 | Progress Note ---
Provider Note Provider Note: Called by the nursing staff @ 10:15P since the patient was desaturating down to the 60s on 100% ventilation. His blood pressure was also dropping with SBP down to 70s. He was mottled. All sedation was stopped which included Versed, propofol and rocuronium. He was on maximum dose of Levophed and his Mitch- Synephrine was being tapered up. he was also started on Vasopressin drip with some improvement in his blood pressure. A repeat ABG and stat CBC, BMP, PT/INR and a repeat 12-lead EKG and chest x-ray were done. His ABG showed 7.06/43/44/ 12 unable to get oxygen saturation since he was a very cold to touch and mottled. He was given 2 AMPs of bicarb. According to the nursing staff, given precipitous decline in his condition and the fact that he seemed to be in pulmonary edema with frothy blood-tinged sputum suctioned, pulmonary was called who advised to stop IV fluids and give 40 mg IV Lasix x1. He also advised to start the patient on bicarb drip. I discussed his case with pulmonary given worsening clinical condition and ABG regarding further recommendations. There was unfortunately nothing much to be done since the patient was not oxygenating or ventilating well. He was in shock despite maxiumizing his pressors. He was too unstable to be transferred to any other facility at this point. I discussed the patient's critical condition with his family who understood that he may not be able to survive tonight. The patient was placed back on the vent and the vent settings were adjusted per pulmonary's recommendations. A repeat ABG was done which showed pH 6.6/67/38. His blood pressure was 35/26. Shortly thereafter, MUMTAZ SORIA was called around 1:17 AM. He received 4 minutes of CPR and 1 epi was given. I discussed the futility of further resuscitation with his family who agreed to withdraw care. Assessment and plan: 1 pneumonia/ARDS. 2. Septic shock, secondary to #1. 3. Flash pulmonary edema. 4. DIC. More than 30 minutes was spent attending to the patient at bedside, reviewing his medical records and labs and discussing his case with pulmonary and updating his family.
[2017-10-02] MEDS: IPRATROPIUM/ALBUTEROL 0.5-2.5 MG/3 ML AMPUL NEB SCH (03:48)
[2017-10-02 10:15] LABS: PATH REVIEW PATHOLOGIST REVIEWED
--- NOTE | 2017-10-02 14:53 | PDOC CONSULTATION ---
Consultation Consult Date: 10/01/17 Attending physician:: JORGE DE LA CRUZ History of Present Illness Admission Date/PCP: 09/30/17 22:34 History of Present Illness: 52 yr. old male Obtunded and some respiratory distress initially admitted patient in the emergency room he was taken to the ICU where he was intubated and sedated and a arterial line was placed by anesthesiology subsequently had a central line per surgery. He is requiring vasopressor agents and high levels of FiO2 at this time additional history is unknownL Past Medical History Cardiac Medical History: Reports: Other - unknown Past Surgical History Past Surgical History: Reports: Other - unknown Social History Information Source: [facility] Records Smoking Status: Former Smoker Cigarettes Packs Per Day: 1 - 30 years he quit 5 days ago. Pipes Per Day: 30 Frequency of Alcohol Use: None Hx Recreational Drug Use: No Drugs: None Hx Prescription Drug Abuse: No Family History Parental Family History Reviewed: No Children Family History Reviewed: No Sibling(s) Family History Reviewed.: No Medication/Allergy Home Medications: Acetaminophen [Tylenol Extra Strength] 1,000 mg PO Q6 10/01/17 Guaifenesin/Pseudoephedrne HCl [Mucinex D ER Tablet] 1 each PO DAILY 10/01/17 Allergies/Adverse Reactions: Penicillins Allergy (Verified 09/30/17 17:30) Review of Systems ROS unobtainable: Due to endotracheal tube Physical Exam Vital Signs: Temp Pulse Resp BP Pulse Ox 103.1 F H 116 H 26 H 43/32 L 90 L 10/01/17 20:00 10/01/17 23:31 10/01/17 23:31 10/01/17 23:10 10/01/17 20:09 Intake & Output 10/01/17 10/02/17 10/03/17 06:59 06:59 06:59 Intake Total 5336 Output Total 910 Balance 4426 Weight 96 kg General appearance: PRESENT: disheveled, morbidly obese, severe distress, well- developed Head exam: PRESENT: normocephalic Eye exam: PRESENT: conjunctiva pale. ABSENT: nystagmus, periorbital swelling, scleral icterus Mouth exam: PRESENT: dry mucosa, neck supple, tongue midline Neck exam: ABSENT: carotid bruit, JVD, lymphadenopathy, thyromegaly, tracheal deviation, tracheostomy Respiratory exam: PRESENT: crackles, decreased breath sounds, prolonged expiratory phas, rales, retraction, rhonchi, symmetrical, tachypnea, wheezes. ABSENT: stridor, unlabored Cardiovascular exam: PRESENT: RRR, +S1, +S2, tachycardia Pulses: PRESENT: normal radial pulses GI/Abdominal exam: PRESENT: diminished bowel sounds, soft Extremities exam: ABSENT: calf tenderness, clubbing Musculoskeletal exam: ABSENT: ambulatory, deformity, dislocation Neurological exam: ABSENT: alert, altered, oriented to person Skin exam: PRESENT: mottled, other - Cool Results Laboratory Results: 10/01/17 21:45 10/02/17 00:51 10/01/17 10/01/17 10/01/17 05:00 14:25 16:20 WBC 2.0 L D RBC Hgb Hct MCV MCH MCHC RDW Plt Count Seg Neutrophils % Lymphocytes % Monocytes % Eosinophils % Basophils % Absolute Neutrophils Absolute Lymphocytes Absolute Monocytes Absolute Eosinophils Absolute Basophils Carbonic Acid 1.75 H HCO3/H2CO3 Ratio 9:1 ABG pH 7.06 L* ABG pCO2 58.0 H ABG pO2 71.1 L ABG HCO3 16.0 L ABG O2 Saturation 86.2 L ABG Base Excess -14.9 FiO2 95% Sodium 132.1 L Potassium 4.6 Chloride 105 Carbon Dioxide 16 L Anion Gap 11 BUN 26 H Creatinine 2.41 H Est GFR ( Amer) 34 L Est GFR (Non-Af Amer) 28 L Glucose 129 H Lactic Acid Calcium 6.6 L* Total Bilirubin AST ALT Alkaline Phosphatase Total Protein Albumin Lipase 10/01/17 10/01/17 10/01/17 17:15 17:50 21:20 WBC RBC Hgb Hct MCV MCH MCHC RDW Plt Count Seg Neutrophils % Lymphocytes % Monocytes % Eosinophils % Basophils % Absolute Neutrophils Absolute Lymphocytes Absolute Monocytes Absolute Eosinophils Absolute Basophils Carbonic Acid 1.24 1.34 HCO3/H2CO3 Ratio 11:1 9:1 ABG pH 7.14 L* 7.06 L* ABG pCO2 41.2 44.5 ABG pO2 63.4 L 43.1 L ABG HCO3 13.8 L 12.4 L ABG O2 Saturation 85.3 L 59.9 L ABG Base Excess -14.6 -17.7 FiO2 95% 100% Sodium Potassium Chloride Carbon Dioxide Anion Gap BUN Creatinine Est GFR ( Amer) Est GFR (Non-Af Amer) Glucose Lactic Acid 3.2 H Calcium Total Bilirubin AST ALT Alkaline Phosphatase Total Protein Albumin Lipase 10/01/17 10/01/17 10/01/17 21:45 21:45 21:45 WBC 2.9 L RBC 5.47 Hgb 17.1 H Hct 50.1 MCV 92 MCH 31.3 MCHC 34.2 RDW 13.9 Plt Count 36 L Seg Neutrophils % 59.3 Lymphocytes % 33.5 Monocytes % 6.9 Eosinophils % 0.1 Basophils % 0.2 Absolute Neutrophils 1.7 Absolute Lymphocytes 1.0 Absolute Monocytes 0.2 Absolute Eosinophils 0.0 Absolute Basophils 0.0 Carbonic Acid HCO3/H2CO3 Ratio ABG pH ABG pCO2 ABG pO2 ABG HCO3 ABG O2 Saturation ABG Base Excess FiO2 Sodium Cancelled Potassium Cancelled Chloride Cancelled Carbon Dioxide Cancelled Anion Gap Cancelled BUN Cancelled Creatinine Cancelled Est GFR ( Amer) Cancelled Est GFR (Non-Af Amer) Cancelled Glucose Cancelled Lactic Acid 4.4 H Calcium Cancelled Total Bilirubin Cancelled AST Cancelled ALT Cancelled Alkaline Phosphatase Cancelled Total Protein Cancelled Albumin Cancelled Lipase Cancelled 10/01/17 10/02/17 10/02/17 22:15 00:51 00:51 WBC RBC Hgb Hct MCV MCH MCHC RDW Plt Count Seg Neutrophils % Lymphocytes % Monocytes % Eosinophils % Basophils % Absolute Neutrophils Absolute Lymphocytes Absolute Monocytes Absolute Eosinophils Absolute Basophils Carbonic Acid 1.57 H 2.03 H HCO3/H2CO3 Ratio 9:1 3:1 ABG pH 7.10 L* 6.66 L* ABG pCO2 52.0 H 67.3 H ABG pO2 34.9 L* 38.1 L* ABG HCO3 15.6 L 7.4 L ABG O2 Saturation 47.8 L 28.3 L ABG Base Excess -14.5 -31.4 FiO2 100% 100% Sodium Cancelled Potassium Cancelled Chloride Cancelled Carbon Dioxide Cancelled Anion Gap Cancelled BUN Cancelled Creatinine Cancelled Est GFR ( Amer) Cancelled Est GFR (Non-Af Amer) Cancelled Glucose Cancelled Lactic Acid Calcium Cancelled Total Bilirubin Cancelled AST Cancelled ALT Cancelled Alkaline Phosphatase Cancelled Total Protein Cancelled Albumin Cancelled Lipase Cancelled 10/01/17 10/01/17 10/02/17 21:45 21:45 00:51 Creatine Kinase Cancelled Cancelled CK-MB (CK-2) 18.50 H Troponin I 0.088 NT-Pro-B Natriuret Pep 71019 H Impressions: Chest/Abdomen CTA 09/30/17 19:03 IMPRESSION: Diffuse patchy and dense consolidation throughout the left upper and lower lobes. No emboli visualized in the main pulmonary arteries or the segmental branches. KUB X-Ray 10/01/17 00:00 IMPRESSION: Decompression of the stomach. Nasogastric tube tip in the stomach , side port at the GE junction Chest X-Ray 10/01/17 21:46 IMPRESSION: 1. Appropriate endotracheal and left subclavian line. Nasogastric tube tip not seen. 2. Progressive infiltrates/edema, now worsening on the right compared to study from earlier. Assessment & Plan - Diagnosis (1) MCKINLEY (acute kidney injury) Is this a current diagnosis for this admission?: Yes Plan: Labs- All tests 24 hr 09/30/17 10/01/17 10/01/17 18:15 05:00 05:00 WBC 2.0 L D Hgb 16.6 Plt Count 86 L PT APTT BUN 13 22 H Creatinine 1.29 H 2.61 H NT-Pro-B Natriuret Pep 10/01/17 10/01/17 10/01/17 09:18 13:00 14:25 WBC Hgb 17.8 H Plt Count PT 18.3 H APTT 42.8 H BUN 26 H Creatinine 2.41 H NT-Pro-B Natriuret Pep 10/01/17 21:45 WBC Hgb Plt Count PT APTT BUN Creatinine NT-Pro-B Natriuret Pep 32538 H (2) Acute respiratory failure with hypoxemia Is this a current diagnosis for this admission?: Yes Plan: Increasing female are difficult to ventilate and oxygenate Labs- All tests 24 hr 10/01/17 10/01/17 10/01/17 04:35 06:57 13:00 ABG pH 7.21 L 7.24 L 7.02 L* ABG pCO2 44.1 38.1 58.6 H ABG pO2 62.8 L 86.5 71.1 L 10/01/17 16:20 ABG pH 7.06 L* ABG pCO2 58.0 H ABG pO2 71.1 L (3) Pneumonia Qualifiers: Pneumonia type: due to unspecified organism Laterality: left Lung location: unspecified part of lung Qualified Code(s): J18.9 - Pneumonia, unspecified organism Is this a current diagnosis for this admission?: Yes (4) Severe sepsis Is this a current diagnosis for this admission?: Yes Plan: 10/01/17 13:00 Gram Stain - Preliminary Tracheal Aspirate Sputum Culture - Preliminary Gram Positive Cocci Normal Maia Absent 10/01/17 10:51 Blood Culture - Preliminary Blood NO GROWTH IN 24 HOURS 10/01/17 09:18 Blood Culture - Preliminary Blood NO GROWTH IN 24 HOURS 09/30/17 19:34 Blood Culture - Preliminary Blood NO GROWTH IN 24 HOURS 09/30/17 18:25 Blood Culture - Preliminary Blood NO GROWTH IN 24 HOURS (5) Smoker Is this a current diagnosis for this admission?: Yes (6) Thrombocytopenia Is this a current diagnosis for this admission?: Yes Plan: Labs- All tests 24 hr 09/30/17 10/01/17 10/01/17 18:15 05:00 09:18 Plt Count 113 L 86 L 67 L 10/01/17 21:45 Plt Count 36 L Labs- All tests 24 hr 10/01/17 10/01/17 13:00 21:45 PT 18.3 H 21.4 H APTT 42.8 H 44.9 H Consider DIC suggests fibrinogen and fibrin split products (7) Leukocytopenia, unspecified Is this a current diagnosis for this admission?: Yes Plan: Labs- All tests 24 hr 10/01/17 10/01/17 10/01/17 05:00 09:18 21:45 WBC 2.0 L D 2.3 L 2.9 L - Time Total Critical Time (Minutes): 80
--- NOTE | 2017-10-02 16:06 | Death Summary ---
Summary Date : 10/02/17 Time of :: 01:22 Autopsy: No Resuscitation Status: Full Code - Final Diagnosis (1) Community acquired bacterial pneumonia Is this a current diagnosis for this admission?: Yes (4) Acute respiratory failure with hypoxemia Is this a current diagnosis for this admission?: Yes (5) Elevated transaminase level Is this a current diagnosis for this admission?: Yes (6) MCKINLEY (acute kidney injury) Is this a current diagnosis for this admission?: Yes (7) Pancytopenia Is this a current diagnosis for this admission?: Yes (8) Hyponatremia Is this a current diagnosis for this admission?: Yes (9) Flash pulmonary edema Is this a current diagnosis for this admission?: Yes (10) DIC (disseminated intravascular coagulation) Is this a current diagnosis for this admission?: Yes Hospital Course:: Patient was admitted under hospitalist service for the treatment of pneumonia. Patient respiratory status got progressively worse despite being assisted with BiPAP. Patient required fluid resuscitation as he was having no urinary output. He was transferred to intensive care unit where he required intubation. Patient was paralyzed due to progressive difficulty keeping with oxygenation. Eventually patient coded and he was pronounced on October 02 at 01:22. Is my understanding that family opted to withdraw care. Presentation was consistent with pneumonia leading to septic shock, adult respiratory distress syndrome, flash pulmonary edema and disseminated intravascular coagulation which all were listed in his certificate as cause of by zhane.
== END 2017-10-02 01:22 | disposition left against medical advice (07) | DRG 871 ==
LOC: ER 17:28 → EH 22:34 → ICU 10-01 11:15
PROVIDERS: ADMIT Internal Medicine Geriatric Medicine; ATTEND Internal Medicine Geriatric Medicine
PROC: 02HV33Z Insertion of Infusion Device into Superior Vena Cava, Percutaneous Approach (ICD-10-PCS; principal; 2017-10-01)
PROC: 0BH17EZ Insertion of Endotracheal Airway into Trachea, Via Natural or Artificial Opening (ICD-10-PCS; 2017-10-01)
PROC: 5A1935Z Respiratory Ventilation, Less than 24 Consecutive Hours (ICD-10-PCS; 2017-10-01)
DX: A41.9 Sepsis, unspecified organism (principal); J15.9 Unspecified bacterial pneumonia; R65.21 Severe sepsis with septic shock; D65 Disseminated intravascular coagulation [defibrination syndrome]; N17.9 Acute kidney failure, unspecified; J80 Acute respiratory distress syndrome; E87.1 Hypo-osmolality and hyponatremia; D72.819 Decreased white blood cell count, unspecified; M54.6 Pain in thoracic spine; R74.0 Nonspecific elevation of levels of transaminase and lactic acid dehydrogenase [LDH]; R07.9 Chest pain, unspecified; F17.210 Nicotine dependence, cigarettes, uncomplicated
CPT/HCPCS: 31500; 36415; 71045; 71046; 71275; 74018; 80048; 80053; 81001; 82553; 82803; 83605; 83615; 83880; 84484; 85025; 85027; 85610; 85730; 86880; 87015; 87040; 87070; 87077; 87086; 87101; 87116; 87186; 87205; 87206; 87804; 93005; 93010; 94002; 94640; 94660; 96365; 96367; 96375; 99291; C1751; J0171; J0330; J0456; J0610; J0696; J1170; J1644; J1885; J1940; J1956; J2020; J2185; J2250; J2370; J2704; J2920; J3360; J3490; J7030; J7040; J7060; J7620; S0164